=== PATIENT | male | born 1970 | race Caucasian/White ===

== ENCOUNTER 2018-02-26 00:35 | Emergency (ER) | payer OTHER ==
[2018-02-26 00:53] VITALS: BP 152/110; PULSE 88; TEMP 98.3; BMI 28.1
--- NOTE | 2018-02-26 01:46 | PDOC ---
History of Present Illness - General Chief Complaint: Eye Problem Stated Complaint: EYE SWELLING Time Seen by Provider: 02/26/18 00:42 - History of Present Illness Initial Comments: 02/26/18 02:23 "The patient is a 48 year old male, with no significant past medical history, who presents to the emergency department with left eye redness, pain and swelling for the past week. The patient reports that he noticed his symptoms start about one week ago and have gradually progressed over the past week. He notes that he first noticed a small spot on his upper eyelid that was red and painful. Since then, it has gotten bigger. He reports that he saw his PCP 4 days ago for these symptoms, for which he was prescribed Cephalexin and Erythromycin ointment which he states he has been taking. Despite taking the antibiotics as directed, his symptoms have worsened so he decided to come to the ED for evaluation.The patient denies vision changes. He denies fever, chills , headaches, double vision or pain with eye movement. The patient's primary language is Cymro, his friend is at the bedside who is translating. Allergies: None reported. Past Surgical History: None reported. Social History: Non-smoker. Denies alcohol or drug use. " Past History - Past Medical History Allergies/Adverse Reactions: Allergies Allergy/AdvReac Type Severity Reaction Status Date / Time No Known Allergies Allergy Verified 02/26/18 00:52 Home Medications: Ambulatory Orders Clindamycin [Cleocin -] 300 mg PO TID #21 capsule 02/26/18 - Suicide/Smoking/Psychosocial Hx Smoking History: Never smoked Have you smoked in the past 12 months: No Information on smoking cessation initiated: No Hx Alcohol Use: No Drug/Substance Use Hx: No Review of Systems - Review of Systems Comments:: 02/26/18 02:24 "GENERAL/CONSTITUTIONAL: No fever or chills. No weakness. HEAD, EYES, EARS, NOSE AND THROAT: +Left eye erythema, pain and swelling. No ear pain or discharge. No sore throat. CARDIOVASCULAR: No chest pain or shortness of breath. RESPIRATORY: No cough, wheezing, or hemoptysis. GASTROINTESTINAL: No nausea, vomiting, diarrhea or constipation. GENITOURINARY: No dysuria, frequency, or change in urination. MUSCULOSKELETAL: No joint or muscle swelling or pain. No neck or back pain. SKIN: No rash. NEUROLOGIC: No headache, vertigo, loss of consciousness, or change in strength/ sensation. ENDOCRINE: No increased thirst. No abnormal weight change. HEMATOLOGIC/LYMPHATIC: No anemia, easy bleeding, or history of blood clots. ALLERGIC/IMMUNOLOGIC: No hives or skin allergy. " *Physical Exam - Vital Signs Last Vital Signs Temp Pulse Resp BP Pulse Ox 98.3 F 88 18 152/110 98 02/26/18 00:51 02/26/18 00:51 02/26/18 00:51 02/26/18 00:51 02/26/18 00:51 - Physical Exam Comments: 02/26/18 02:25 "GENERAL: Awake, alert, and fully oriented, in no acute distress. HEAD: No signs of trauma. EYES: + Left upper eyelid hordeolum with some purulent drainage. Mild conjunctivitis. No surrounding erythema or induration. Visual acuity normal both eyes, EOMI without pain. ENT: Auricles normal inspection, hearing grossly normal, nares patent, oropharynx clear without exudates. Moist mucosa. NECK: Nontender, no stepoffs, Normal ROM, supple, no lymphadenopathy, JVD, or masses. LUNGS: Breath sounds equal, clear to auscultation bilaterally. No wheezes, and no crackles. HEART: Regular rate and rhythm, normal S1 and S2, no murmurs, rubs or gallops. ABDOMEN: Soft, nontender, normoactive bowel sounds. No guarding, no rebound. No masses. EXTREMITIES: Normal range of motion, no edema. No clubbing or cyanosis. No cords , erythema, or tenderness. NEUROLOGICAL: Cranial nerves II through XII intact. 5/5 strength and sensation in all extremities, Normal speech, normal gait, normal cerebellar function. SKIN: Warm, dry, normal turgor, no rashes or lesions noted." ED Treatment Course - LABORATORY CBC & Chemistry Diagram: 02/26/18 01:27 02/26/18 01:27 - RADIOLOGY Radiology Studies Ordered: Category Date Time Status ORBIT CT W/O CONTRAST [CT] Stat CT Scan 02/26/18 01:05 Ordered Medical Decision Making - Medical Decision Making 02/26/18 01:17 48 M with L upper eyelid hordeolum. Pt with normal visual acuity, no pain with EOM, no proptosis, making deeper eye infection less likely. However, will r/o orbital cellulitis with CT orbits. - Labs - CT orbits 02/26/18 02:19 CT shows preseptal cellulitis, no evidence of orbital cellulitis. Pt previously on keflex. Will expand coverage to include MRSA with clindamycin. Pt is well appearing, with normal vitals. Clinically stable for DC at this time. I discussed the physical exam findings, ancillary test results and final diagnoses with the patient. I answered all of the patient's questions. The patient was satisfied with the care received and felt comfortable with the discharge plan and treatment plan. The patient agrees to follow up with the primary care physician within 24-72 hours. *DC/Admit/Observation/Transfer Diagnosis at time of Disposition: Hordeolum, Preseptal cellulitis of left eye - Discharge Dispostion Disposition: HOME - Prescriptions Prescriptions: Clindamycin [Cleocin -] 300 mg PO TID #21 capsule - Referrals Referrals: Julio Bhatt MD [Staff Physician] - - Patient Instructions Printed Discharge Instructions: DI for Hordeolum Additional Instructions: You have an infection of your eyelid. This will likely start to drain on its own. Apply warm compresses to help it drain. Take the antibiotics as prescribed to help prevent spread of the infection. If you experience worsening swelling, pain, fevers, vision changes, or any other concerning symptoms, return to the ER immediately. Otherwise, follow up with an test department helper TOMORROW to have your eye re- evaluated and possibly have the abscess drained. Usted tiene moe infeccin de fierro prpado. [place] probablemente comenzar a agotarse por s mismo. Aplique compresas tibias para ayudarlo a drenar. [place] los antibiticos segn lo recetado para ayudar a prevenir la propagacin de la infeccin. Si experimenta un empeoramiento de la hinchazn, dolor, fiebre, cambios en la visin o cualquier otro sntoma preocupante, regrese a la michael de urgencias inmediatamente. De lo contrario, marti un seguimiento con un oftalmlogo MAANA para que se vuelva a evaluar fierro trixie y posiblemente se drene el absceso. Print Language: MAORI - Post Discharge Activity - Attestations Physician Attestion: 02/26/18 02:31 I, Dr. Seferino Kim MD, attest that this document has been prepared under my direction and personally reviewed by me in its entirety. I further attest, that it accurately reflects all work, treatment, procedures and medical decision -making performed by me.
[2018-02-26 01:54] LABS: BASO % 0.6 % (0-2.0); EOS % 1.1 % (0-4.5); HEMATOCRIT 49.7 % (35.4-49); HEMOGLOBIN 17.6 GM/dL (11.7-16.9); LYMPH % 22.9 % (8-40); MCH 31.5 pg (25.7-33.7); MCHC 35.5 g/dl (32.0-35.9); MEAN CELL VOLUME 88.8 fl (80-96); MEAN PLT VOLUME 8.5 fl (7.5-11.1); NEUT % 58.4 % (42.8-82.8); PLATELET COUNT 241 K/MM3 (134-434); RBC 5.59 M/mm3 (4.00-5.60); RDW 12.7 % (11.9-15.9); WHITE BLOOD COUNT 6.2 K/mm3 (4.0-10.0)
[2018-02-26 02:17] LABS: ALBUMIN 4.1 g/dl (3.4-5.0); ANION GAP 6 (8-16); BILIRUBIN,TOTAL 0.5 mg/dL (0.2-1.0); BLOOD UREA NITROGEN 13 mg/dL (7-18); CALCIUM 9.4 mg/dL (8.5-10.1); CHLORIDE 102 mmol/L (98-107); CO2 31 mmol/L (21-32); CREATININE 1.2 mg/dL (0.7-1.3); GLUCOSE,RANDOM 92 mg/dL (74-106); POTASSIUM 4.2 mmol/L (3.5-5.1); SGOT/AST 27 U/L (15-37); SGPT/ALT 36 U/L (12-78); SODIUM 139 mmol/L (136-145); TOT PROT 7.5 g/dl (6.4-8.2)
[2018-02-26 02:18] LABS: ALK PHOS 101 U/L (45-117)
[2018-02-26] MEDS ORDERED: CLINDAMYCIN HCL 150 MG CAPSULE (FP) PO ONE (02:38)
[2018-02-26] MEDS ORDERED: CLINDAMYCIN HCL 150 MG CAPSULE (FP) ONE (02:42)
== END 2018-02-26 02:45 | disposition home or self-care (01) ==
LOC: JER 00:35
DX: H00.014 Hordeolum externum left upper eyelid (principal); L03.213 Periorbital cellulitis
CPT/HCPCS: 36415; 70480-TC; 80053; 85025; 99281-25

== ENCOUNTER 2021-02-14 17:57 | Emergency (ER) | payer OTHER ==
[2021-02-14 18:42] VITALS: TEMP 98.3; BMI 27.6
[2021-02-14 20:09] LABS: CHLORIDE 106 mmol/L (98-107); SODIUM 141 mmol/L (136-145)
[2021-02-14 20:13] LABS: ALBUMIN 4.3 g/dl (3.4-5.0); ANION GAP 6 MMOL/L (8-16); BLOOD UREA NITROGEN 14.7 mg/dL (7-18); CALCIUM 9.7 mg/dL (8.5-10.1); CO2 28 mmol/L (21-32); GLUCOSE,RANDOM 125 mg/dL (74-106)
[2021-02-14 20:16] LABS: CREATININE 0.9 mg/dL (0.55-1.3); SGOT/AST 13 U/L (15-37); SGPT/ALT 30 U/L (13-61)
[2021-02-14 20:18] LABS: TOT PROT 7.4 g/dl (6.4-8.2)
[2021-02-14 20:19] LABS: ALK PHOS 102 U/L (45-117)
[2021-02-14 20:22] LABS: BILIRUBIN,TOTAL 0.5 mg/dL (0.2-1)
[2021-02-14 20:43] LABS: BASO % 0.6 % (0-2.0); EOS % 0.4 % (0-4.5); HEMATOCRIT 52.4 % (35.4-49); LYMPH % 25.2 % (8-40); MCH 30.7 pg (25.7-33.7); MCHC 34.4 g/dl (32.0-35.9); MEAN CELL VOLUME 89.4 fl (80-96); MEAN PLT VOLUME 8.4 fl (7.5-11.1); MONO % 9.9 % (3.8-10.2); NEUT % 63.9 % (42.8-82.8); PLATELET COUNT 301 K/MM3 (134-434); RBC 5.87 M/mm3 (4.00-5.60); RDW 13.1 % (11.9-15.9); WHITE BLOOD COUNT 6.8 K/mm3 (4.0-10.0)
[2021-02-14 21:20] VITALS: BP 146/106; PULSE 74
== END 2021-02-14 21:15 | disposition home or self-care (01) ==
LOC: JER 17:57
DX: R42 Dizziness and giddiness (principal)
CPT/HCPCS: 36415; 71045-TC-FY; 80053; 84484; 85025; 93005; 93010; 99285-25; C9803; U0003; U0005

== ENCOUNTER 2021-05-05 15:14 | Observation (INO) | payer OTHER ==
[2021-05-05 15:30] VITALS: BMI 24.3
[2021-05-05] MEDS ORDERED: SODIUM CHLORIDE 0.9% 500 ML INFUS.BAG IV ONE (16:46)
[2021-05-05 18:10] LABS: BASO % 0.2 % (0-2.0); EOS % 0.2 % (0-4.5); HEMATOCRIT 53.9 % (35.4-49); HEMOGLOBIN 18.4 GM/dL (11.7-16.9); LYMPH % 7.2 % (8-40); MCH 30.5 pg (25.7-33.7); MCHC 34.1 g/dl (32.0-35.9); MEAN CELL VOLUME 89.3 fl (80-96); MEAN PLT VOLUME 8.2 fl (7.5-11.1); MONO % 5.3 % (3.8-10.2); NEUT % 87.1 % (42.8-82.8); PLATELET COUNT 260 10^3/uL (134-434); RBC 6.04 M/mm3 (4.00-5.60); RDW 12.9 % (11.9-15.9); WHITE BLOOD COUNT 14.9 K/mm3 (4.0-10.0)
[2021-05-05 18:27] LABS: CHLORIDE 105 mmol/L (98-107); SODIUM 138 mmol/L (136-145)
[2021-05-05 18:29] LABS: CALCIUM 9.7 mg/dL (8.5-10.1)
[2021-05-05 18:30] LABS: ALBUMIN 4.5 g/dl (3.4-5.0); ANION GAP 7 MMOL/L (8-16); BLOOD UREA NITROGEN 14.3 mg/dL (7-18); CO2 27 mmol/L (21-32); GLUCOSE,RANDOM 107 mg/dL (74-106)
[2021-05-05 18:33] LABS: SGOT/AST 43 U/L (15-37); SGPT/ALT 40 U/L (13-61)
[2021-05-05 18:34] LABS: BILIRUBIN,TOTAL 0.8 mg/dL (0.2-1); TOT PROT 8.2 g/dl (6.4-8.2)
[2021-05-05 18:36] LABS: ALK PHOS 106 U/L (45-117)
[2021-05-05 20:59] LABS: EPI CELLS 10 /uL (0-25.1); HYALINE CASTS 1 /uL (0-3.1); URINE APPEARANCE CLEAR; URINE BACTERIA 18 /uL (0-1359); URINE BILIRUBIN NEGATIVE (NEGATIVE); URINE COLOR YELLOW; URINE GLUCOSE (UA) NEGATIVE (NEGATIVE); URINE KETONE NEGATIVE (NEGATIVE); URINE LEUK ESTERASE NEGATIVE (NEGATIVE); URINE NITRITE NEGATIVE (NEGATIVE); URINE PROTEIN NEGATIVE (NEGATIVE); URINE RBC 31 /uL (0-23.9); URINE UROBILINOGEN 0.2 mg/dL (0.2-1.0); URINE WBC 4 /uL (0-25.8)
[2021-05-06] MEDS ORDERED: SODIUM CHLORIDE 1,000 ML IV SCH (05:30)
[2021-05-06] MEDS ORDERED: ASPIRIN COATED 81 MG TABLET.EC PO SCH (10:00)
[2021-05-06] MEDS ORDERED: ENOXAPARIN NA (PORCINE) 40 MG/0.4 ML DISP.SYRIN SQ SCH (10:00)
[2021-05-06 12:24] LABS: BASO % 0.4 % (0-2.0); EOS % 1.1 % (0-4.5); HEMATOCRIT 54.3 % (35.4-49); HEMOGLOBIN 18.5 GM/dL (11.7-16.9); MCH 30.6 pg (25.7-33.7); MCHC 34.1 g/dl (32.0-35.9); MEAN CELL VOLUME 89.7 fl (80-96); MEAN PLT VOLUME 8.2 fl (7.5-11.1); NEUT % 71.5 % (42.8-82.8); PLATELET COUNT 266 10^3/uL (134-434); RBC 6.05 M/mm3 (4.00-5.60); RDW 13.3 % (11.9-15.9)
[2021-05-06 12:41] LABS: CHLORIDE 105 mmol/L (98-107); SODIUM 140 mmol/L (136-145)
[2021-05-06 12:44] LABS: ALBUMIN 4.2 g/dl (3.4-5.0); ANION GAP 6 MMOL/L (8-16); BLOOD UREA NITROGEN 14.2 mg/dL (7-18); CALCIUM 9.8 mg/dL (8.5-10.1); CO2 28 mmol/L (21-32); GLUCOSE,RANDOM 106 mg/dL (74-106); MAGNESIUM 2.3 mg/dL (1.8-2.4)
[2021-05-06 12:47] LABS: CHOLESTEROL 240 mg/dL (50-200); CREATININE 0.9 mg/dL (0.55-1.3); PHOSPHOROUS 2.7 mg/dL (2.5-4.9); SGOT/AST 19 U/L (15-37); SGPT/ALT 37 U/L (13-61); TRIGLYCERIDES 97 mg/dL (0-150)
[2021-05-06 12:48] LABS: BILIRUBIN,TOTAL 0.8 mg/dL (0.2-1); LDL CHOLESTEROL (ONLY SJRH) 166 mg/dL (5-100); TOT PROT 7.8 g/dl (6.4-8.2)
[2021-05-06 12:49] LABS: ALK PHOS 100 U/L (45-117)
[2021-05-06 12:50] LABS: HDL CHOLESTEROL 54 mg/dL (40-60)
[2021-05-06 18:36] VITALS: BP 129/95; PULSE 77; TEMP 98.3
[2021-05-07 08:07] LABS: ERYTHROPOIETIN 4.8 mIU/mL (2.6-18.5)
== END 2021-05-06 18:39 | disposition home or self-care (01) ==
LOC: JER 15:14 → UNDOADMOB 19:42 → INTOOBSV 19:42 → JERBED 19:42 → J5S 05-06 00:24 → J4W 05-06 06:17 → J5S 05-06 08:57 → JERBED 05-06 08:57
PROVIDERS: ADMIT Hospitalist; ATTEND Student in an Organized Health Care Education/Training Program
PROC: 3E023GC Introduction of Other Therapeutic Substance into Muscle, Percutaneous Approach (ICD-10-PCS; principal; 2021-05-06)
PROC: 3E0337Z Introduction of Electrolytic and Water Balance Substance into Peripheral Vein, Percutaneous Approach (ICD-10-PCS; 2021-05-06)
DX: I16.0 Hypertensive urgency (principal); D75.1 Secondary polycythemia; D72.829 Elevated white blood cell count, unspecified; Z29.9 Encounter for prophylactic measures, unspecified
CPT/HCPCS: 36415; 70450-TC; 71046-TC-FY; 80053; 80061; 81003; 82550; 82668; 82728; 83036; 83721; 83735; 84100; 84436; 84443; 84466; 84484; 85025; 87040; 87086; 93005; 93010; 93880-TC; 96360; 96361; 96372; 99285-25; C9803; G0378; U0003; U0005

== ENCOUNTER 2022-10-23 02:31 | Emergency (ER) | payer OTHER ==
[2022-10-23 02:48] VITALS: BP 165/93; PULSE 73; RESP 20; TEMP 98.8; BMI 27.7
[2022-10-23 04:07] LABS: BASO % 0.3 % (0-2.0); EOS % 0.6 % (0-4.5); HEMATOCRIT 52.1 % (35.4-49); HEMOGLOBIN 17.2 GM/dL (11.7-16.9); LYMPH % 8.5 % (8-40); MCH 29.6 pg (25.7-33.7); MEAN CELL VOLUME 89.6 fl (80-96); MEAN PLT VOLUME 8.2 fl (7.5-11.1); NEUT % 83.6 % (42.8-82.8); PLATELET COUNT 270 10^3/uL (134-434); RBC 5.82 M/mm3 (4.00-5.60); RDW 13.1 % (11.9-15.9); WHITE BLOOD COUNT 12.2 K/mm3 (4.0-10.0)
[2022-10-23 04:43] LABS: EPI CELLS >36 /uL (0-25.1); HYALINE CASTS 0 /uL (0-3.1); URINE APPEARANCE CLEAR; URINE BACTERIA 29 /uL (0-1359); URINE BILIRUBIN NEGATIVE (NEGATIVE); URINE COLOR YELLOW; URINE GLUCOSE (UA) NEGATIVE (NEGATIVE); URINE KETONE NEGATIVE (NEGATIVE); URINE LEUK ESTERASE NEGATIVE (NEGATIVE); URINE NITRITE NEGATIVE (NEGATIVE); URINE PROTEIN TRACE (NEGATIVE); URINE RBC 97 /uL (0-23.9); URINE UROBILINOGEN 0.2 mg/dL (0.2-1.0); URINE WBC 36 /uL (0-25.8)
[2022-10-23] MEDS ORDERED: SODIUM CHLORIDE 0.9% 500 ML INFUS.BAG IV ONE (04:47)
[2022-10-23 04:54] LABS: ALBUMIN 3.9 g/dl (3.4-5.0); BLOOD UREA NITROGEN 18.7 mg/dL (7-18)
[2022-10-23 04:57] LABS: CREATININE 1.2 mg/dL (0.55-1.3)
[2022-10-23 04:59] LABS: BILIRUBIN,TOTAL 0.6 mg/dL (0.2-1); TOT PROT 7.2 g/dl (6.4-8.2)
== END 2022-10-23 08:30 | disposition home or self-care (01) ==
LOC: JER 02:31
DX: R10.11 Right upper quadrant pain (principal)
CPT/HCPCS: 36415; 74019-TC-FY; 80053; 81003; 85025; 93005; 93010; 99285-25

== ENCOUNTER 2023-02-12 04:00 | Day surgery (SDC) | payer OTHER ==
[2023-02-08 13:57] VITALS: BMI 26.6
[2023-02-12] MEDS ORDERED: MIDAZOLAM HCL 2 MG/2 ML SINGLE DOSE VIAL ONE (11:51)
[2023-02-12 12:36] VITALS: TEMP 97.8
[2023-02-12] MEDS ORDERED: ONDANSETRON 4 MG/2 ML VIAL IVPUSH ONE (12:37)
[2023-02-12 14:38] VITALS: BP 136/83; PULSE 75; RESP 18
== END 2023-02-12 13:25 | disposition home or self-care (01) ==
LOC: JASU-SURG 04:00
PROVIDERS: ATTEND Urology
PROC: 0TF4XZZ Fragmentation in Left Kidney Pelvis, External Approach (ICD-10-PCS; principal; 2023-02-12 10:30)
DX: N20.0 Calculus of kidney (principal)

== ENCOUNTER 2025-08-10 06:21 | Day surgery (SDC) | payer OTHER ==
[2025-08-05 11:05] VITALS: BMI 25.8
[2025-08-10] MEDS ORDERED: MIDAZOLAM HCL 2 MG/2 ML SINGLE DOSE VIAL ONE (15:14)
[2025-08-10] MEDS ORDERED: ONDANSETRON 4 MG/2 ML VIAL ONE (15:14)
[2025-08-10 15:48] VITALS: RESP 18
[2025-08-10 17:16] VITALS: BP 136/90; PULSE 74; TEMP 97.8
== END 2025-08-10 17:20 | disposition home or self-care (01) ==
LOC: JASU-SURG 06:21
PROVIDERS: ATTEND Urology
PROC: 0TF3XZZ Fragmentation in Right Kidney Pelvis, External Approach (ICD-10-PCS; principal; 2025-08-10 15:45)
DX: N20.0 Calculus of kidney (principal)